=== PATIENT | female | born 1995 | race Caucasian/White ===

== ENCOUNTER 2016-07-29 10:04 | Emergency (ER) | payer OTHER ==
[~2016-07-29] VITALS: Ht 157.5 cm; Wt 50.0 kg
[~2016-07-29 10:04] MED LIST: PREN1TAB47 PO
[2016-07-29 10:09] VITALS: BP 110/72; PULSE 97; RESP 20; O2SAT 97
--- NOTE | 2016-07-29 11:25 | ED.REPORT ---
HPI- Female Date of Service Jul 29, 2016 ED Provider: Danis Woodruff DO The patient is a 20 year old female who presents to the emergency department concerned she may have had a miscarriage. At 1400 yesterday she started to have lower abdominal pain and back pain that she describes as "labor pain." A few hours later she went to the bathroom and noticed blood in the toilet and something that appeared to be a "early fetus." This morning her pain has improved but is still present. She currently has an IUD in place and has regular periods about every 28 days. Her LNMP was a little over 4 weeks ago. The bleeding over the last two days has been less than a normal period. The pain is more severe from a normal period. She also mentions that her IUD may have "shifted." She was last sexually active on Thursday. She is not concern about a sexually transmitted infection. Nursing Notes Stated Complaint: POSS MISCARRIAGE Chief Complaint: Female Abdominal Pain Nursing Notes Reviewed: Yes Allergies: Coded Allergies: codeine (Verified Allergy, Unknown, 07/29/16) Scheduled Vit/Fe Fumarate/Fa-Expunged Drug, Do (-Expunged Drug, Do Not Renew!) 1 Tab Tablet 1 TAB PO DAILY General Time Seen by MD: 10:46 Chief Complaint Pelvic pain, Vaginal bleeding... (Mild) Hx Obtained From: Patient Arrived By: Walk-in Sudden in Onset?: Yes Onset Occurred: Yesterday Symptom Duration: Since onset Location: : Suprapubic Quality: Painful Radiation: Back Severity: Current: Moderate Severity: Maximum: Moderate Sexual History / Control: Reports IUD, Reports Pt is sexually active Para: 2 Recent Healthcare: No recent doctor visit, No recent hospitalization Similar Sx Previous: No Past Medical History Past Medical History heat murmur as child Past Surgical History nasal surgery Family History Noncontributory Smoking History Never Smoker Social History Alcohol Use: Denies alcohol use Other Social History: , Local resident Ambulatory Status Independent Review of Systems Female: Reports: Pelvic pain, Vaginal bleeding - abnl Musculoskeletal: Reports: Back pain Complete sys rev & neg: except as marked. Physical Exam Initial Vital Signs Vital Signs (First) Date Time Temp Pulse Resp B/P Pulse Ox O2 Delivery O2 Flow Rate FiO2 07/29/16 10:09 36.2 97 20 110/72 97 Room Air Initial VS: Reviewed General/Constitutional: Well-developed, Well-nourished Head / Eyes: Atraumatic, Normocephalic, PERRL ENT: Mucous membranes moist, Conjunctiva normal, No scleral icterus Neck: Supple, Non-tender, Full range of motion Respiratory: Breath sounds normal, Clear to auscultation, No respiratory distress Cardiovascular: Regular rate & rhythm, Heart sounds normal, Intact distal pulses Abdomen / GI: Soft, Non-tender, No guarding, No rebound, No distention Lymphatic: No lymphadenopathy Extremities: Vascular intact, Neuro intact, No swelling, No tenderness Skin: Warm, Dry, No cyanosis Neurologic: Alert, Oriented, Nonfocal Psychiatric: Mood/affect normal, Behavior normal, Normal thought content Female Genitourinary: Body Mechanic Apprentice present, Atraumatic, External genitalia NL, No bleeding, No discharge, No cervical motion tend IUD strings are in appropriate position Interpretation & Diagnostics Interpretation & Diagnostics: Urine : negative ABDOMINAL US: Normal appendix. Right ovarian simple cyst. Lab Results Interpretation Result Diagram: 07/29/16 1325 07/29/16 1325 Test 07/29/16 10:57 07/29/16 13:25 07/29/16 13:45 Urine HCG, Qualitative Negative (Negative) White Blood Count 6.6th/mm3 (3.8-10.1) Red Blood Count 4.67mil/mm3 (3.90-5.20) Hemoglobin 13.8g/dL (12.0-15.6) Hematocrit 40.4% (35.0-46.0) Mean Corpuscular Volume 86.5fL (81-100) Mean Corpuscular Hemoglobin 29.6pg (27.0-35.0) Mean Corpuscular Hemoglobin Concent 34.2% (32.0-37.0) Red Cell Distribution Width 12.6% (12.3-15.4) Platelet Count 220bil/L (150-400) Neutrophils (%) (Auto) 68.9% (40-74) Lymphocytes (%) (Auto) 20.9% (14-46) Monocytes (%) (Auto) 8.0% (4-12) Eosinophils (%) (Auto) 1.7% (0-5) Basophils (%) (Auto) 0.2% (0-3) Sodium Level 138mEq/L (134-144) Potassium Level 4.1mEq/L (3.5-5.2) Chloride Level 101mEq/L (97-108) Carbon Dioxide Level 24mmol/L (18-29) Blood Urea Nitrogen 12mg/dL (6-20) Creatinine 0.56mg/dL (0.57-1.00) Estimat Glomerular Filtration Rate 194mL/min (>59) Glucose Level 89mg/dL (60-99) Calcium Level 9.8mg/dL (8.5-10.1) Hold Rooney Top Tube Received (Received) Re-Eval/Medical Decision Med Decision/Clinical Course Right lower abdominal pain ultimately is what seems to be this patient's chief complaint, initially it sounds like normal menses however she is concerned due to worsening pain out of the ordinary from prior menses. Ultimately there is no evidence of appendicitis no ovarian torsion, she has bilateral ovarian cysts. Clinically her pelvic exam is not consistent in any way with PID, and no cultures were obtained for this reason. There is no evidence of . Labs unremarkable. She will be discharged and is reassured. Return impressions given. Source of Hx: Old records, Family Re-Evaluation/Progress #1: Time of Eval: 13:09 Re-Evaluation/Progress Note: Completed pelvic exam. Her pain has now progressed to her RLQ. Will order abdominal US. Re-Evaluation/Progress #2: Time of Eval: 14:39 Re-Evaluation/Progress Note: Rechecked the patient. Discussed findings, diagnosis, and plan for discharge. All questions were addressed. Counseled Regarding: Diagnosis, Lab results, Need for follow-up, When/why to return to ED Discharge & Departure Impression: Primary Impression: Vaginal bleeding Additional Impression: Lower abdominal pain Disposition: Home Discharge Condition All VS Reviewed: Yes Condition: Stable Additional Instructions: Thank you for entrusting us with your care today. Your labs and ultrasounds today are reassuring. This is not likely a miscarriage but your normal menstrual cycle. I recommend following up with your regular OBGYN in the next few days. You can use Ibuprofen as needed for your pain. Please return to the emergency department if you develop increased pain, heavy vaginal bleeding, dizziness, lightheadedness, or any other new or concerning symptoms. Referrals: Demetrius Teague MD Scribe Attestation Portions of this note were transcribed by Coral Hernandez. I, Dr. Woodruff personally performed the history, physical exam and medical decision-making; I reviewed and confirmed the accuracy of the information in the transcribed note. Signed by: Julissa Stephenson, 07/29/2016 at 3225. copies to: Demetrius Teague MD, Timothy S DO Jul 29, 2016 11:24 Coral Hernandez Jul 29, 2016 11:28
[2016-07-29 13:36] LABS: BASOPHILS % (AUTO) 0.2 % (0-3); EOSINOPHILS % (AUTO) 1.7 % (0-5); Mean Corpuscular Hemoglobin 29.6 pg (27.0-35.0); Mean Corpuscular Volume 86.5 fL (81-100); NEUTROPHILS % (AUTO) 68.9 % (40-74); Platelet Count 220 bil/L (150-400)
[2016-07-29 14:45] VITALS: BP 118/74; PULSE 79; O2SAT 100
--- NOTE | 2016-07-29 14:51 | DRSVH ---
PROCEDURE: US APPENDIX INDICATIONS: RLQ pain TECHNIQUE: Real-time focused scanning was performed of the abdomen with attention to the appendix, with image do cumentation. COMPARISON: None. FINDINGS: Appendix visualization: Well-visualized. Appendix measurements: 2.7 mm Associated findings: Echogenic fat: Absent. Appendiceal compressibility: Present. Appendicoliths: Absent. Nearby free fluid: Absent. Lymphadenopathy: Absent. Tenderness on exam: Absent. Mildly complex right ovarian cyst present measuring roughly 2.7 cm. IMPRESSION: Normal sonographic appearance of the appendix. Of note, mildly complex left ovarian cyst present likely physiologic. Dictated by: Filiberto NUGENT Interpreted: Ginger Velázquez MD on 07/29/2016 at 14:49 Transcribed by: LUCIANO on 07/29/2016 at 14:51 Approved by: Ginger Velázquez MD, PhD on 07/29/2016 at 17:05
[2016-07-29 15:02] VITALS: BP 118/74; PULSE 79; RESP 15; O2SAT 100
== END 2016-07-29 15:00 | disposition home or self-care (01) ==
LOC: SED 10:04
DX: N93.9 Abnormal uterine and vaginal bleeding, unspecified (principal); R10.31 Right lower quadrant pain; Z97.5 Presence of (intrauterine) contraceptive device; Z88.5 Allergy status to narcotic agent

== ENCOUNTER 2017-02-06 09:14 | Day surgery (SDC) | payer OTHER ==
[~2017-02-06] VITALS: Ht 157.5 cm; Wt 52.7 kg
[2017-02-06] VITALS (9 sets, daily range): BP systolic 95–112; BP diastolic 44–86; PULSE 57–84; RESP 15–23; O2SAT 98–100
[~2017-02-06 09:14] MED LIST changes: +LEVO1TAB8 PO; -PREN1TAB47 PO
[2017-02-06] MEDS ORDERED: Neostigmine 1 mg/mL 10 mL Inj ONE (09:15)
[2017-02-06] MEDS ORDERED: Rocuronium 10 mg/mL 5 mL Inj ONE (09:15)
[2017-02-06] MEDS ORDERED: fentaNYL-PF 50 mCg/mL 2 mL Inj ONE (09:15)
[2017-02-06] MEDS ORDERED: Ondansetron 2 mg/mL 2 mL Inj ONE (09:15)
[2017-02-06] MEDS ORDERED: Glycopyrrolate 0.2 MG/ML 1mL Inj ONE (09:15)
[2017-02-06] MEDS ORDERED: Propofol 10,000 mCg/mL 20 mL Inj ONE (09:15)
[2017-02-06] MEDS: Lactated Ringer's 1,000 ML IV SCH ×2 (09:32→12:14)
[2017-02-06] MEDS ORDERED: Lactated Ringer's 1,000 ML IV SCH (11:29)
[2017-02-06] MEDS ORDERED: Lactated Ringer's 500 ML IV PRN (11:29)
--- NOTE | 2017-02-06 11:29 | PCM.HPANE ---
Patient Data Date of Service: Feb 06, 2017 Surgeon Admitting Provider: Attending Provider:Preston Eugene MD Primary Care Physician:Shamika Other Provider:Terry Rob Anesthesia Reason for Visit Family Planning Ht/WT & BMI Height (Feet): 5 Height (Inches): 2.00 Weight (Kilograms): 52.700 Body Mass Index 21.00 Allergies Coded Allergies: codeine (Verified Allergy, Unknown, 02/04/17) Past Anesthesia History Anesthesia History: Denies:: Abnormal Airway, Anesthesia Reactions, Difficult Intubation, Fam Anesthesia Reaction, Fam Malignant Hypertherm Diabetes History Hx Diabetes?: No MRSA MRSA: No Medications Home Meds Incl Beta Osman: No Reported Medications Levonorgestrel/Ethinyl Estradiol (Aviane)1 Each Tablet1 Tablet PO DAILY #1 PACK 02/04/17 Discontinued Reported Medications Vit/Fe Fumarate/Fa-Expunged Drug, Do (-Expunged Drug, Do Not Renew!)1 Tab Tablet1 Tab PO DAILY 02/06/13 History History of ENT Problems?: No HEENT History: Positive for:: Hearing Problem (PE tubes as child) Sinus Problem (deviated septum) Denies:: Abnormal Airway Cataracts Difficult Intubation Dysphagia Glaucoma TMJ Denture Type: None Teeth Condition: Within Normal Limits Hx of Heart Problems?: No Cardiovascular History: Positive for:: Heart Murmur Denies:: Abdominal Aortic Aneurism Atrial Fibrillation Cardiac Surgery Chest Pain Congestive Heart Failure Coronary Artery Disease Edema Hypertension Irregular Heartbeat Pacemaker Peripheral Vascular Rheumatic Fever Thrombophlebitis Valvular Heart Disease Hx of Respiratory Problem?: No Respiratory History: Denies:: Asthma COPD Chest Surgery Cough Dyspnea Emphysema Hemoptysis Oxygen Administration Pneumonia Pulmonary Embolism Tuberculosis Use of C-PAP Machine Use of Inhalers / NEBS Other History/Comment Tobacco abuse Hx Hx Neurologic Problems?: Yes Neurological History: Positive for:: Headaches (14 days a month) Denies:: Alzheimer's Disease CVA Dementia Dizziness Multiple Sclerosis Parkinson's Disease Seizures TIA Hx of GI Problems?: No Hx of Problems?: No Genitourinary History: Denies:: Kidney Stones Urinary Tract Infection HX of Peritoneal Dialysis: No Female Hx: Denies:: Problems with Breasts? Skin History: Denies:: History Skin Disorders? Pressure Ulcers Hx Musculoskeletal Problems?: No Hx of Psycho/Social Problems?: No Hx Surgeries?: Yes (NASAL, c-sec ) Other History: Positive for:: Hospitalization (Child ) Denies:: Cancer Endocrine Disease Thyroid Disease History Blood Transfusions: Positive for:: Accept Blood Products? Denies:: Blood Transfusions Hx Diabetes: No Hx Alcohol Use: Yes ("2 beers a week")Hx Substance Use: No Smoking Status: Never Smoker Stop/Bang S-Snoring: Do You Snore Loudly: No T-Tired: feel tired, fatigued: No O-Obsered: Observed not breath: No P-Blood Pressure: treated: No B- Body Mass Index > 35 kg/m2: No A- Age over 50: No N- Neck Large Circumference: No G- Gender Male: No JES Total Score: 0 JES Risk Assessment: Low Risk, <3 Yes Risk Assessment Category Category 1A: Patient has history of documented sleep apnea, and HAS NOT received any narcotic, sedative or anesthesia administration during this stay. Category 1B: Patient has history of documented sleep apnea, and HAS received any narcotic , sedative or anesthesia administration during this stay Category 2: Patient has SUSPECTED Obstructive Sleep Apnea, and HAS received any narcotic , sedative or anesthesia administration during this stay. Category 3: Patient has SUSPECTED Obstructive Sleep Apnea and HAS NOT received narcotic, sedative or anesthesia administration during this stay. Category 4: Outpatient in Procedural Areas with known sleep apnea or who screen positive for High Risk via the STOP/BANG questionnaire. Exam Exam Vital Signs Vital Signs Date Time Temp Pulse Resp B/P Pulse Ox O2 Delivery O2 Flow Rate FiO2 02/06/17 09:40 36.5 84 16 112/61 98 Room Air General Appearance: Alert, Oriented X3, Cooperative, No Acute Distress HEENT/AIRWAY: MP 2 Lungs: Clear to Auscultation, Normal Air Movement Heart: Exam Unremarkable, Regular Rate/Rhythm, No Murmurs/Rubs/Gallops Meds/Labs/Diagnostics Admission Meds Current Medications Lactated Ringer's (Lr) 1,000 ml @ 120 mls/hr Q8H20M IV Last administered on t 09:32; Start 02/06/17 at 05:00; Stop 02/06/17 at 13:19 Plan Impression Patient chart reviewed, patient interviewed and anesthestic plan with risks, benefits, and alternatives discussed, and informed consent obtained. NPO per Anesth. Guidelines: Yes ASA Physical Status: ASA2 Mod Systemic Disease Anesthetic Plan: GA Bene/Risks/Altern/Consents: Yes HP Complete Prior to Induction: Yes Estuardo Reich DO Feb 06, 2017 11:29
[2017-02-06] MEDS ORDERED: Atropine 0.4 mg/mL Inj IVPUSH PRN (11:30)
[2017-02-06] MEDS ORDERED: Ondansetron 2 mg/mL 2 mL Inj IVPUSH PRN ×2 (11:30→13:05)
[2017-02-06] MEDS ORDERED: EPHEDrine Sulfate 50 mg/mL Inj IVPUSH PRN (11:30)
[2017-02-06] MEDS ORDERED: Labetalol 5 mg/mL 4 mL Inj IV PRN (11:30)
[2017-02-06] MEDS ORDERED: Phenylephrine 10,000 mCg/mL Inj IVPUSH PRN (11:30)
[2017-02-06] MEDS ORDERED: Dexamethasone 4 mg/mL Inj IVPUSH PRN (11:30)
[2017-02-06] MEDS ORDERED: MetoCLOpramide 5 mg/mL 2 mL Inj IVPUSH PRN (11:30)
[2017-02-06] MEDS ORDERED: fentaNYL-PF 50 mCg/mL 2 mL Inj IVPUSH PRN (11:30)
[2017-02-06] MEDS ORDERED: Bupivacaine-MPF 0.5% W/EPI 30 mL Inj INFILTRATE ONE (12:50)
[2017-02-06] MEDS ORDERED: oxyCODONE-Acetamin 5-325 mg Tablet PO PRN (13:05)
[2017-02-06] MEDS ORDERED: diphenhydrAMINE 25 mg Capsule PO PRN (13:05)
--- NOTE | 2017-02-06 13:08 | PCM.DIMED ---
Discharge Instructions Date of Service Feb 06, 2017 Dates of Hospitalization Diet Discharge Diet: No restrictions Activity Discharge Activity: No restrictions Call your provider Call your provider for: Fever or Chills, Shortness of breath, Bleeding, Chest pain, Vomitting, Excessive diarrhea, Weakness (unilateral) Patient Instructions Follow-up with PCP in: 2 weeks Preston Eugene MD Feb 06, 2017 13:08
[2017-02-06] MEDS ORDERED: Lactated Ringer's 1,000 ML IV ONE (13:53)
[2017-02-06] MEDS ORDERED: Lactated Ringer's 500 ML IV ONE (14:50)
--- NOTE | 2017-02-06 18:54 | OP ---
[address] [address] OPERATIVE REPORT PATIENT: KAT MARTINEZ : 1995 MR#: [id number] ADMIT: 02/06/2017 JOB ID: [id number] DATE OF SURGERY: 02/06/2017 SURGEON: Preston Eugene MD PROCEDURE: Laparoscopic bilateral tubal ligation. PREOPERATIVE DIAGNOSIS(ES): Desires sterilization. POSTOPERATIVE DIAGNOSIS(ES): Desires sterilization. ANESTHESIA: General, Dr. Reich. ESTIMATED BLOOD LOSS: 1 mL. ESTIMATED FLUIDS: 400 mL of lactated Ringer. COMPLICATIONS: None. FINDINGS: Normal appearance of the perineum, vagina, and the cervix. Uterus normal in size. Normal adnexa. Mild adhesions between the omentum and anterior abdominal wall and paraumbilical area. Lysis of adhesions was done prior to the tubal ligation to visualize both fallopian tubes. PROCEDURE: The patient was brought to the operating room, where she underwent general anesthesia without difficulty. The patient was placed in the dorsal lithotomy position using Ricardo stirrups. She was prepped and draped in the usual surgical fashion. Time-out was performed verifying correct patient, correct procedure. A Sanford retractor was placed into the vagina. The cervix was visualized, grasped with a tenaculum. Hulka uterine manipulator was placed. Attention was directed to the patient's abdomen where local lidocaine was used periumbilically, after which the Veress needle was introduced, CO2 gas was insufflated, and appropriate pneumoperitoneum was achieved. A 5 mm vertical subumbilical incision was made with a scalpel and a 5 mm trocar was placed through the incision. The pelvis was visualized with the 30 degree scope, with the findings mentioned above. Using a LigaSure instrument, adhesions in periumbilical area were lysed. Additional skin incision was made in the patient's left lower quadrant 5 cm superiorly and medially from the anterior-superior iliac spine. A 5 mm trocar was placed through the incision for the LigaSure instrument. After adhesions were released, the uterus was elevated in the pelvis using Hulka manipulator. The patient's left fallopian tube was identified, a series of images was obtained. With the LigaSure instrument it was ligated in three places 3 cm laterally from the uterine cornua and 1 cm from each other. The tube was then transected. The same was done on the patient's contralateral side. Several images were obtained. There was no blood loss. The instruments were removed, the trocars were removed. The abdomen was desufflated from the CO2 gas prior to the removal of the trocars. The trocar skin incisions were reapproximated using 4-0 Monocryl. Hemostatic dressings were applied. Hulka uterine manipulator was removed from the uterus. The patient was repositioned into the supine position. She tolerated the procedure well and was transferred to the recovery room in stable condition.
--- NOTE | 2017-02-09 08:09 | PCM.ANEP1 ---
Post Anesthesia PACU Phase 1 Assessment Date of Service: Feb 06, 2017 Anesthetic Administered: GA Level of Alertness: Awake, talking CROW's with Equal Strength: Yes Pain: No Nausea or Vomiting: No CV Function & Hydration Stable: Yes Airway Device: Lungs: Clear to Auscultation, Normal Air Movement PACU Phase 2 Assessment Patient Instructions Provided: N/A Estuardo Reich DO Feb 09, 2017 08:09
== END 2017-02-06 23:59 | disposition home or self-care (01) ==
LOC: SAS 09:14
PROVIDERS: ATTEND Legal Medicine
DX: Z30.2 Encounter for sterilization (principal); R01.1 Cardiac murmur, unspecified

== ENCOUNTER 2017-03-11 20:06 | Emergency (ER) | payer OTHER ==
[~2017-03-11] VITALS: Ht 157.5 cm; Wt 53.2 kg
[2017-03-11 20:27] VITALS: BP 118/81; PULSE 94; RESP 16; O2SAT 100
--- NOTE | 2017-03-11 20:44 | ED.REPORT ---
HPI-General Illness Date of Service Mar 11, 2017 ED Provider: Guru Duarte MD Pt is a healthy 21 year old female presenting to the ED complaining of throat pain for the last 2 weeks. Associated symptoms include pain with swallowing, nausea, generalized malaise, body aches, and a mild headache. Denies SOB, wheezing, chest pain. She reports that she gets enflamed tonsils a lot, but usually not this bad. She denies any sick contacts She was seen by her PCP and was tested for mono and strep which were both negative. She has been taking amoxicillin. She has not seen ENT. Nursing Notes Stated Complaint: SORE THROAT, FEVER, HEADACHES Chief Complaint: FLU/Cold Symptoms Nursing Notes Reviewed: Yes Allergies: Coded Allergies: codeine (Verified Allergy, Unknown, 03/11/17) No Active Prescriptions or Reported Meds General Time Seen by MD: 20:34 Chief Complaint Sore throat Hx Obtained From: Patient Arrived By: Walk-in Sudden in Onset?: No Onset Occurred: More than a week ago... (2 weeks) Symptom Duration: Since onset Quality: Painful Severity: Current: Moderate Severity: Maximum: Severe Recent Healthcare: No recent hospitalization, Recent doctor visit Similar Sx Previous: Yes Past Medical History Past Medical History heart murmur as child Past Surgical History nasal surgery Family History Noncontributory Smoking History Never Smoker Social History Alcohol Use: Denies alcohol use Other Social History: , Local resident Ambulatory Status Independent Review of Systems Full Review of Systems Constitutional: Reports: Fever, Malaise Ears / Nose / Throat: Reports: Sore throat, Throat swelling Respiratory: Denies: Shortness of breath, Wheezing Cardiovascular: Denies: Chest pain GI: Reports: Nausea, Vomiting Neurologic: Reports: Headache Complete sys rev & neg: except as marked. Physical Exam Vital Signs Vital Signs Date Time Temp Pulse Resp B/P Pulse Ox O2 Delivery O2 Flow Rate FiO2 03/11/17 22:13 89 16 107/70 99 Room Air 03/11/17 20:27 37.1 94 16 118/81 100 Room Air Initial VS: Reviewed Cardiovascular: Regular rate & rhythm, Heart sounds normal, Intact distal pulses Abdomen / GI: Soft, Non-tender, No guarding, No rebound, No distention Extremities: Vascular intact, Neuro intact, No swelling, No tenderness Skin: Warm, Dry, No cyanosis Neurologic: Alert, Oriented, Nonfocal Psychiatric: Mood/affect normal, Behavior normal, Normal thought content Head / Eyes: Atraumatic, Normocephalic, PERRL, EOMI ENT: Atraumatic, Airway patent, Tympanic membs NL Bilateral tonsillar erythema, scant exudate. Tolerating secretions well. Normal phonation. Uvula midline. Neck: Atraumatic, Supple Bilateral anterior tender cervical adenop. Respiratory / Chest: Atraumatic, Breath sounds NL, Breath sounds = bilat, No respiratory distress, No stridor Lower Extremity / Pelvis / MS: Atraumatic, Inspection NL, No swelling, Non- tender, No erythema, No deformity, Neurologic intact, Vascular intact, No edema Interpretation & Diagnostics Lab Results Interpretation Test 03/11/17 21:03 Hold Rooney Top Tube Received (Received) Monoscreen Negative (Negative) Re-Eval/Medical Decision Med Decision/Clinical Course Pt is a healthy 21 year old female presenting to the ED complaining of throat pain for the last 2 weeks. Associated symptoms include pain with swallowing, nausea, generalized malaise, body aches, and a mild headache. Denies SOB, wheezing, chest pain. She reports that she gets enflamed tonsils a lot, but usually not this bad. She denies any sick contacts She was seen by her PCP and was tested for mono and strep which were both negative. She has been taking amoxicillin. She has not seen ENT. Here in the emergency department the patient is afebrile stable vital signs and examination as above. Examination of the oropharynx or vials erythematous inflamed tonsils bilaterally with scant whitish exudate. There is no lateralizing tonsillar swelling. There is no fluctuance or evidence of peritonsillar abscess. There is no evidence of Carlos angina. The patient is swallowing and breathing with ease. There is no evidence whatsoever of compromised airway. There are no findings suggestive of retropharyngeal abscess or epiglottitis. The presentation of the tonsils is somewhat concerning for possible bacterial pharyngitis however strep test today is negative. Moreover, Monospot today is also negative. Here in the emergency department the patient was treated with 10 mg of oral Decadron for symptom relief. She is advised to continue taking Tylenol and ibuprofen. I sent a throat culture though without any definitive bacterial cause of her symptoms I do not feel that broadening her antibiotics at this moment is necessary. She will follow up with her primary care physician in the next 48 hours to get the results of her throat culture. In the meantime she is advised to return right away for any worsening swelling, pain, difficulty breathing or difficulty swallowing. She is additionally been referred to ENT due to her chronic and recurrent tonsillar inflammation. Patient feels comfortable with this plan. She was given one tablet of [place] though is advised not to take this until she gets home as she is driving. Prior to discharge follow-up and return precautions were reviewed in detail with the patient who verbalized understanding and agreement with the plan. The patient was discharged in stable condition. Time of Eval: 21:41 Patient Status: Condition improved Re-Evaluation/Progress Note: Discussed plan for discharge. Pt understands and agrees. Counseled Regarding: Diagnosis, Lab results, Need for follow-up, When/why to return to ED Discharge & Departure Primary Impression: Tonsillar erythema Additional Impression: Pharyngitis Pharyngitis/tonsillitis etiology: unspecified etiology Qualified Code: J02.9 - Acute pharyngitis, unspecified Disposition: Home Discharge Condition All VS Reviewed: Yes Condition: Improved Additional Instructions: Take Ibuprofen as directed for pain. You can take it every 6 hours up to 3 times per day for 1 week. Stop taking it if it upsets your stomach. Eat popsicles and soft foods until your throat stops hurting. There were no signs of strep throat or mononucleosis. There were also no signs of peritonsillar abscess. If you have any difficulty breathing or swallowing, increased throat swelling, swelling on one side of your neck and not the other, or failure of your symptoms to improve return to the ER. Follow up with your primary care doctor in the next 48 hours for the results of the throat culture. Complete the full course of amoxicillin. Referrals: Ezio Sarabia DO (PCP) Julissa Attestation Portions of this note were transcribed by Miriam Cutler. I, Dr. Duarte personally performed the history, physical exam and medical decision-making; I reviewed and confirmed the accuracy of the information in the transcribed note. Signed by: Julissa Erickson, 03/11/2017. copies to: Ezio Sarabia Beck O MD Mar 11, 2017 20:44 MIRIAM CUTLER Mar 11, 2017 21:40
[2017-03-11] MEDS ORDERED: HYDROcodone-APAP 5-325 mg Tablet PO ONE (22:10)
[2017-03-11 22:13] VITALS: BP 107/70; PULSE 89; RESP 16; O2SAT 99
== END 2017-03-11 22:14 | disposition home or self-care (01) ==
LOC: SED 20:06
DX: L53.9 Erythematous condition, unspecified (principal); J02.9 Acute pharyngitis, unspecified; Z88.5 Allergy status to narcotic agent